=== PATIENT | female | born 2000 | race Caucasian/White ===

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

== ENCOUNTER 2023-12-23 16:58 | Emergency (ER) | payer MEDICAID ==
[2023-12-23] MEDS: predniSONE 20 MG Tab PO ONE (18:42)
== END 2023-12-23 19:46 | disposition home or self-care (01) ==
LOC: JD.ED 16:58
DX: M54.32 Sciatica, left side (principal); Z91.040 Latex allergy status; Z79.899 Other long term (current) drug therapy
CPT/HCPCS: 99283; J7512

== ENCOUNTER 2024-04-18 06:09 | Emergency (ER) | payer MEDICAID ==
[2024-04-18] MEDS: Sodium Chloride 0.9% 1,000 ML IV SCH (07:35)
[2024-04-18] MEDS: Codeine/guaiFENesin 10-100 MG/5 ML Syrup 5 ML Syringe PO ONE (07:36)
[2024-04-18] MEDS: Ondansetron 4 MG/2 ML SDV IVPUSH ONE (07:36)
[2024-04-18] MEDS: Sodium Chloride 0.9% 10 ML Syringe FLUSH PRN (07:36)
[2024-04-18 07:58] LABS: BASOPHILS PERCENT AUTO 0.5 % (0.0-1.0); EOSINOPHILS ABSOLUTE AUTO 0.1 K/mm3 (0.0-0.4); EOSINOPHILS PERCENT AUTO 1.2 % (0.0-6.0); HEMATOCRIT 46.9 % (37.0-47.0); HEMOGLOBIN 15.5 gm/dl (12.0-16.0); IMMATURE GRAN ABSOLUTE AUTO 0.02 K/mm3 (0.00-0.05); IMMATURE GRAN PERCENT AUTO 0.2 % (0.0-0.4); LYMPHOCYTES ABSOLUTE AUTO 2.2 K/mm3 (1.0-4.8); LYMPHOCYTES PERCENT AUTO 24.4 % (24.0-44.0); MEAN CORPUSCULAR HEMOGLOBIN 28.8 pg (28.0-32.0); MEAN CORPUSCULAR VOLUME 87.2 fl (83.0-99.0); MEAN PLATELET VOLUME 10.8 fl (9.4-12.3); MONOCYTES ABSOLUTE AUTO 0.5 K/mm3 (0.0-0.8); MONOCYTES PERCENT AUTO 5.9 % (0.0-8.0); NEUTROPHILS PERCENT AUTO 67.8 % (41.0-71.0); PLATELET COUNT,PLT 330 K/mm3 (150-400); RED BLOOD CELL COUNT 5.38 M/mm3 (4.10-5.30); WHITE BLOOD CELL COUNT,WBC 8.81 K/mm3 (3.9-11.3)
[2024-04-18 08:25] LABS: A/G RATIO 1.2 (1-2); ALANINE AMINOTRANSFERASE,ALT 35 U/L (14-59); ALBUMIN 4.4 g/dl (3.4-5.0); ALKALINE PHOSPHATASE 93 U/L (46-116); ANION GAP 12.9 (5-15); ASPARTATE AMNIOTRANSFERASE,AST 19 U/L (15-37); BILIRUBIN TOTAL 0.3 mg/dL (0.2-1.0); BLOOD UREA NITROGEN,BUN 8 mg/dL (7-18); BUN/CREATININE RATIO 8.9 (14-18); CALCIUM 9.3 mg/dL (8.5-10.1); CARBON DIOXIDE,CO2 28 mEq/L (21-32); CHLORIDE,CL 105 mEq/L (98-107); CREATININE 0.9 mg/dL (0.55-1.02); EST CRCL DRUG DOSING (CG) 95.35 mL/min; ESTIMATED GFR 93 mL/min (>60); GLUCOSE RANDOM 98 mg/dL (70-99); POTASSIUM,K 3.9 mEq/L (3.5-5.1); SODIUM,NA 142 mEq/L (136-145); TROPONIN I HIGH SENSITIVITY 4 pg/mL (<=51)
[2024-04-18 08:26] LABS: C-REACTIVE PROTEIN < 0.05 mg/dL (<0.30)
== END 2024-04-18 09:04 | disposition home or self-care (01) ==
LOC: JD.ED 06:09
DX: U07.1 COVID-19 (principal); Z91.040 Latex allergy status
CPT/HCPCS: 36415; 71045; 71045-26; 80053; 84484; 85025; 86140; 93005; 96361; 96374; 99284; 99285-25; A9270-GY; J2405; J3490; J7030

== ENCOUNTER 2024-04-19 06:53 | Emergency (ER) | payer MEDICAID | END 2024-04-19 07:07 | disposition left against medical advice (07) | LOC: JD.ED 06:53 | DX: Z53.21 Procedure and treatment not carried out due to patient leaving prior to being seen by health care provider (principal) ==